=== PATIENT | female | born 1970 | race African-American/Black ===

== ENCOUNTER 2021-01-19 09:49 | Emergency (ER) | payer OTHER ==
[~2021-01-19] VITALS: Ht 160 cm; Wt 66.7 kg
[2021-01-19 09:51] VITALS: BP 121/76
--- NOTE | 2021-01-19 09:51 | NUR ---
TO BED AMBULATORY
[2021-01-19] MEDS ORDERED: NACL 0.9% 1,000 ML IV SCH (10:10)
[2021-01-19] MEDS ORDERED: KETOROLAC 30 MG/ML VIAL IVP ONE (10:10)
[2021-01-19] MEDS ORDERED: ONDANSETRON 4 MG/2 ML VIAL IVP ONE (10:10)
--- NOTE | 2021-01-19 10:10 | NUR ---
50 y/o F BIB self from home with c/c nausea and R flank pain x 3 days. Patient A&Ox4, ambulatory, reports she was walking at work with an acute onset of R flank pain. Patient reports 8/10, intermittent from sharp to dull, non-radiating pain. R flank tender to touch. Patient states recently seen with possible kidney stones, patient has been taking NSAIDs and drinking fluids for relief. Patient states nausea this morning without vomiting. +Dysuria +Urinary frequency. Denies fever, chills, SOB, chest pain. Pt placed into a gown and urine sample collected. Bed locked in lowest position, side rails x 1, call light in reach. Last BM: this AM normal. PMH: HDL, tremors Meds: Atorvastatin, atenolol Allergies: Ibuprofen, Cipro Sx: Hysterectomy.
--- NOTE | 2021-01-19 10:27 | NUR ---
DR. MUNOZ BEDSIDE EVALUATING PT
--- NOTE | 2021-01-19 10:43 | NUR ---
Pt to CT via wheelchair.
--- NOTE | 2021-01-19 10:43 | NUR ---
UA, blood sample collected, walked to lab and handed to CPT Felisa
--- NOTE | 2021-01-19 10:57 | NUR ---
Patient returned from CT via wheelchair. [place] provided per request.
[2021-01-19 11:03] LABS: BASOPHILS % (AUTO) 0.9 % (0.0-2.0); BILIRUBIN,URINE NEGATIVE (NEGATIVE); BLOOD, URINE TRACE-I (NEGATIVE); COLOR,URINE YELLOW (YELLOW); EOSINOPHILS # (AUTO) 0.1 K/uL (0-0.4); EOSINOPHILS % (AUTO) 2.2 % (0.0-4.0); HEMATOCRIT 37.3 % (36-48); HEMOGLOBIN 12.1 g/dL (12.0-16.0); LEUKOCYTE ESTERASE ,URINE NEGATIVE (NEGATIVE); LYMPHOCYTES # (AUTO) 1.4 K/uL (2.5-16.5); LYMPHOCYTES % (AUTO) 30.1 % (20.5-51.1); MEAN CORPUSCULAR HEMOGLOBIN 26 pg (27-31); MEAN CORPUSCULAR HGB CONC 32 g/dL (33-37); MEAN CORPUSCULAR VOLUME 79.3 fL (80-94); MONOCYTES # (AUTO) 0.3 K/uL (0.8-1.0); MONOCYTES % (AUTO) 6.4 % (1.7-9.3); NEUTROPHILS # (AUTO) 2.9 K/uL (1.8-7.7); NEUTROPHILS % (AUTO) 60.4 % (42.2-75.2); NITRITE, URINE NEGATIVE (NEGATIVE); PH,URINE 5.5 (5.0-9.0); PLATELET COUNT (AUTO) 181 K/uL (140-450); RED BLOOD CELL COUNT(AUTO) 4.71 MIL/uL (4.20-5.40); RED CELL DISTRIBUTION WIDTH 13.5 % (11.6-13.7); UGLUCOSE NEGATIVE (NEGATIVE); WHITE BLOOD COUNT (AUTO) 4.8 K/uL (4.8-10.8)
[2021-01-19 11:05] LABS: APPEARANCE,URINE SLIGHTLY HAZY (CLEAR)
[2021-01-19 11:13] LABS: RBC,URINE 0-5 /HPF (0-5); WBC,URINE 0-5 /HPF (0-5)
[2021-01-19 11:16] LABS: ALBUMIN 4.1 g/dL (3.4-5.0); ANION GAP 13.2 (8-16); CARBON DIOXIDE 25.4 mmol/L (21-32); CREATININE 0.9 mg/dL (0.6-1.3); POTASSIUM 4.6 mmol/L (3.5-5.1); TOTAL BILIRUBIN 0.3 mg/dL (0.0-1.0)
--- NOTE | 2021-01-19 11:27 | NUR ---
Patient resting in position of comfort. States relief to nausea and pain; rates pain 0/10 and denies any nausea at this time. Patient reports pain to IV site; flushed with NS, IV patent with good blood return.
--- NOTE | 2021-01-19 12:07 | NUR ---
Dr. Alan is reevaluating patient at bedside.
--- NOTE | 2021-01-19 12:19 | NUR ---
Patient ambulated to restroom with steady/even gait.
[2021-01-19 12:23] VITALS: BP 112/66
[2021-01-19] MEDS ORDERED: PHEN-1877 PO (12:50)
[2021-01-19] MEDS ORDERED: ACET-11169 PO (12:50)
[2021-01-19] MEDS ORDERED: LID5T TP (12:50)
--- NOTE | 2021-01-19 13:02 | NUR ---
Dr. Alan is reevaluating patient at bedside.
--- NOTE | 2021-01-19 13:41 | NUR ---
Patient discharged with v/s stable. Written and verbal after care instructions given and explained. Patient alert, oriented and verbalized understanding of instructions. Ambulatory with steady gait. All questions addressed prior to discharge. ID band removed. Patient advised to follow up with PMD. Rx of Acetaminophen, Lidocaine Hyd, Phenazopyridine given. Patient educated on indication of medication including possible reaction and side effects. Opportunity to ask questions provided and answered.
== END 2021-01-19 13:41 | disposition home or self-care (01) ==
LOC: MED 09:49
DX: R10.9 Unspecified abdominal pain (principal); Z90.710 Acquired absence of both cervix and uterus; Z79.899 Other long term (current) drug therapy; Z88.6 Allergy status to analgesic agent; Z88.1 Allergy status to other antibiotic agents
CPT/HCPCS: 36415; 74176; 80053; 81001; 83690; 85025; 96361; 96374; 96375; 99284; J1885; J2405; J7030